=== PATIENT | male | born 1990 | race Two or more races ===

== ENCOUNTER 2017-07-07 00:16 | Emergency (ER) | payer OTHER ==
[~2017-07-07] VITALS: Ht 167.6 cm; Wt 83.9 kg
[2017-07-07 00:26] VITALS: BP 135/77
[2017-07-07] MEDS ORDERED: TDAP [DIPH/PERTUSSIS/TET] 0.5 ML VIAL IM ONE (00:30)
--- NOTE | 2017-07-07 00:56 | NUR ---
PT STATES CURRENT WITH TDAP.
== END 2017-07-07 01:22 | disposition home or self-care (01) ==
LOC: ER 00:17
DX: S01.21XA Laceration without foreign body of nose, initial encounter (principal); F17.200 Nicotine dependence, unspecified, uncomplicated; S00.33XA Contusion of nose, initial encounter; Z88.1 Allergy status to other antibiotic agents; Z88.8 Allergy status to other drugs, medicaments and biological substances; W22.8XXA Striking against or struck by other objects, initial encounter; Y93.39 Activity, other involving climbing, rappelling and jumping off; Y92.89 Other specified places as the place of occurrence of the external cause; Y99.8 Other external cause status
CPT/HCPCS: A4606; Z7610